=== PATIENT | male | born 1995 | race African-American/Black ===

== ENCOUNTER 2019-09-05 13:50 | Emergency (ER) | payer MEDICAID ==
[~2019-09-05] VITALS: Ht 170.2 cm; Wt 87.5 kg
[2019-09-05 14:25] VITALS: BP_SYST 147
--- NOTE | 2019-09-05 15:40 | NUR ---
Patient to ER Hallway bed 1 to gown for evaluation. Side rails up.
--- NOTE | 2019-09-05 15:45 | NUR ---
Patient presented to ER C/O right arm pain. Patient A&Ox4, afebrile, skin pink and warm, slight swelling noted, PT able to move all digits and wrist. Patient states he has right arm pain radiating to fingers and elbow, "pain is sharp and shooting to elbow".
--- NOTE | 2019-09-05 16:02 | NUR ---
ER Dr. Becerra at bedside examining patient.
[2019-09-05] MEDS ORDERED: IBUPROFEN 600 MG TABLET PO ONE (16:15)
[2019-09-05 16:25] VITALS: BP_SYST 144
--- NOTE | 2019-09-05 16:25 | NUR ---
Patient given written and verbal discharge instructions and verbalizes understanding. ER MD discussed with patient the results and treatment provided. Patient in stable condition. ID arm band removed. Rx of Ibuprofen 600 given. Patient educated on pain management and to follow up with PMD. Pain Scale 4/10 tolerable. Opportunity for questions provided and answered.
== END 2019-09-05 16:25 | disposition home or self-care (01) ==
LOC: SED 13:50
DX: G56.01 Carpal tunnel syndrome, right upper limb (principal)
CPT/HCPCS: 99283

== ENCOUNTER 2019-11-10 07:27 | Emergency (ER) | payer SELFPAY ==
[~2019-11-10] VITALS: Ht 170.2 cm; Wt 88.9 kg
[2019-11-10 07:30] VITALS: BP_SYST 157
[2019-11-10] MEDS ORDERED: KETOROLAC TROMETHAMINE 30 MG VIAL IVP ONE (09:45)
[2019-11-10 10:11] LABS: BASOPHILS # (AUTO) 0.1 K/uL (0.0-0.2); BASOPHILS % (AUTO) 1.3 % (0.0-2.0); EOSINOPHILS # (AUTO) 0.1 K/uL (0.0-0.4); EOSINOPHILS % (AUTO) 2.2 % (0.0-4.0); HEMATOCRIT 45.7 % (36-54); LYMPHOCYTES # (AUTO) 1.9 K/uL (1.0-5.5); LYMPHOCYTES % (AUTO) 30.8 % (20.5-51.5); MEAN CORPUSCULAR HEMOGLOBIN 30 pg (27-31); MEAN CORPUSCULAR HGB CONC 33 % (32-36); MEAN CORPUSCULAR VOLUME 92 fL (79.0-98.0); MONOCYTES # (AUTO) 0.5 K/uL (0.0-1.0); MONOCYTES % (AUTO) 8.5 % (1.7-9.3); NEUTROPHILS # (AUTO) 3.6 K/uL (1.8-7.7); NEUTROPHILS % (AUTO) 57.2 % (40.0-70.0); PLATELET COUNT (AUTO) 240 K/uL (130-430); RED BLOOD CELL COUNT(AUTO) 4.97 MIL/uL (4.2-6.2); RED CELL DISTRIBUTION WIDTH 12.9 % (9.0-15.0); WHITE BLOOD COUNT (AUTO) 6.3 K/uL (4.8-10.8)
[2019-11-10 10:26] LABS: CALCIUM 8.9 mg/dL (8.4-11.0); CREATININE 0.99 mg/dL (0.55-1.30); POTASSIUM 3.7 mmol/L (3.5-5.1)
[2019-11-10 10:30] LABS: ALBUMIN 3.9 g/dL (3.4-4.8); TOTAL BILIRUBIN 0.4 mg/dL (0.0-1.0); URIC ACID 4.1 mg/dL (2.4-7.0)
[2019-11-10 10:53] LABS: ERYTHROCYTE SEDIMENTATION RATE 5 MM/HR (0-15)
[2019-11-10 10:54] LABS: BILIRUBIN,URINE NEGATIVE (NEGATIVE); BLOOD, URINE NEGATIVE (NEGATIVE); CLARITY/URINE CLEAR (CLEAR); COLOR,URINE YELLOW (YELLOW); GLUCOSE,URINE NEGATIVE (NEGATIVE); KETONES,URINE NEGATIVE (NEGATIVE); LEUKOCYTE ESTERASE ,URINE NEGATIVE (NEGATIVE); NITRITE, URINE NEGATIVE (NEGATIVE); PROTEIN URINE NEGATIVE (NEGATIVE); UROBILINOGEN,URINE 0.2 (0.2-1.0)
[2019-11-10 11:20] VITALS: BP_SYST 157
== END 2019-11-10 08:55 | disposition home or self-care (01) ==
LOC: SED 07:27
DX: M25.562 Pain in left knee (principal)
CPT/HCPCS: 36415; 73564; 80053; 81003; 84550; 85025; 85651; 96374; 99284; J1885